=== PATIENT | female | born 1985 | race Caucasian/White ===

== ENCOUNTER 2016-07-19 21:40 | Emergency (ER) | payer OTHER ==
[~2016-07-19] VITALS: Ht 157.5 cm; Wt 59.1 kg
[~2016-07-19 21:40] MED LIST: HYDR-3479 PO
[2016-07-19 21:50] VITALS: BP 141/82; PULSE 100; RESP 16; O2SAT 97
--- NOTE | 2016-07-19 23:52 | ED.REPORT ---
HPI-Dental/Mouth Prob Date of Service Jul 19, 2016 ED Provider: Dr. Lupillo Butler MD A 30 year old, 4 week female presents to the ED complaining of a tooth abscess that first appeared a few months ago. Patient has had several similar previous abscesses to the upper front tooth. She states that she has attempted to obtain insurance to have the problem removed but has been unable to. She describes her pain as "throbbing". Patient denies nay other medical complaints at this time. Nursing Notes Stated Complaint: TOOTH PAIN Chief Complaint: Dental Nursing Notes Reviewed: Yes Allergies: Coded Allergies: penicillin (Verified Allergy, Unknown, hives, nausea, 03/03/15) Scheduled PRN Hydrocodone/Acetaminophen (Vicodin 5-300 mg Tablet) 1 Each Tablet 1-2 EACH PO Q4 PRN PRN For Pain General Time Seen by MD: 23:52 Chief Complaint Tooth pain Hx Obtained From: Patient Arrived By: Walk-in Onset Occurred: More than a week ago... (2 months) Symptom Duration: Since onset Quality: Painful Radiation: : Does not radiate Severity: Current: Mild Severity: Maximum: Mild Pertinent Negative: Pt denies other symptoms Recent Healthcare: No recent doctor visit, No recent hospitalization Past Medical History Past Medical History History of dental abscesses Past Surgical History None reported Smoking History Current Every Day Smoker Social History Alcohol Use: Denies alcohol use Drug Use: In recovery Other Social History: Local resident Ambulatory Status Independent Review of Systems Constitutional: Denies: Chills, Fever Ears / Nose / Throat: Reports: Toothache (Tooth abscess) Respiratory: Denies: Shortness of breath GI: Denies: Abdominal pain, Nausea, Vomiting Complete sys rev & neg: except as marked. Cardiovascular: Denies: Chest pain Neurologic: Denies: Change LOC Physical Exam Initial Vital Signs Vital Signs (First) Date Time Temp Pulse Resp B/P Pulse Ox O2 Delivery O2 Flow Rate FiO2 07/19/16 21:50 36.4 100 16 141/82 97 Room Air Initial VS: Reviewed Extremities: Vascular intact, Neuro intact, No swelling, No tenderness Skin: Warm, Dry, No cyanosis Neurologic: Alert, Oriented, Nonfocal Psychiatric: Mood/affect normal, Behavior normal, Normal thought content ENT: Atraumatic, Airway patent, Mucous membranes moist Dental / Gums: Positive: Dental abscess, Dental caries present (Left maxiallary ) Neck: Atraumatic, Supple General/Constitutional: Awake, Alert Head / Eyes: Atraumatic, Normocephalic, PERRL Respiratory / Chest: Atraumatic, Breath sounds NL, Breath sounds = bilat Cardiovascular: Heart rate NL, Regular rhythm, Heart sounds NL Re-Eval/Medical Decision Med Decision/Clinical Course draining superficial abscess left canine. Mild cellulitis. No stridor or drooling or trismus. PCN allergy: will rx with clindamycin and a short course of percocet for pain. No problems with . Re-Evaluation/Progress : Time of Eval: 00:41 Patient Status: Condition improved Re-Evaluation/Progress Note: Patient is rechecked. She is informed of her diagnoses. All of the patient's questions are addressed. She understands and agrees with the treatment plan to discharge. Counseled Regarding: Diagnosis, Lab results, Need for follow-up, When/why to return to ED Discharge & Departure Primary Impression: Dental abscess Additional Impression: Dental caries Disposition: Home Discharge Condition All VS Reviewed: Yes Condition: Stable Patient Instructions: Dental Abscess (ED), Dental Caries (ED) Additional Instructions: Thank you for trusting us with your care this evening. Please take clindamycin 3 times daily for the next 5 days. Take 1-2 Vicodin every 6 hours as needed for pain. Please do not drink, drive or use any other sedative medications while taking the Vicodin. Please keep your follow-up appointment with your dentist. Return to the emergency department for any new or worsening conditions including fevers, chills or worsening pain. Referrals: NOPCP (PCP) [facility] Scribe Attestation Portions of this note were transcribed by Estella Patel. I, Dr. Butler personally performed the history, physical exam and medical decision-making; I reviewed and confirmed the accuracy of the information in the transcribed note. Signed by: Demarcus Du, 07/20/16 0100. Lupillo Butler DO Jul 19, 2016 23:52 ESTELLA PATEL Jul 20, 2016 00:23
[2016-07-20] MEDS ORDERED: _HYDROcodone/APAP 5-325 mg Tablet PO PRN (00:30)
== END 2016-07-20 01:05 | disposition home or self-care (01) ==
LOC: SED 21:40
DX: O99.611 Diseases of the digestive system complicating pregnancy, first trimester (principal); K04.7 Periapical abscess without sinus; K02.9 Dental caries, unspecified; F17.200 Nicotine dependence, unspecified, uncomplicated; Z3A.00 Weeks of gestation of pregnancy not specified; Z87.19 Personal history of other diseases of the digestive system; Z88.0 Allergy status to penicillin